=== PATIENT | female | born 1990 | race Caucasian/White ===

== ENCOUNTER 2016-10-16 00:21 | Emergency (ER) | payer OTHER ==
[~2016-10-16] VITALS: Ht 175.3 cm; Wt 74.4 kg
[~2016-10-16 00:21] MED LIST: BENTYL20 M1 PO; CIPRO 500MG TA500 MG PO; DOXYCYCLINE HY100 M4 PO; LEVSIN0.125 MG PO; MULTIVITAMIN1 TAB PO; OMEPRAZOLE40 MG PO; PRILOSEC40 MG PO; PYRIDIUM200 MG PO; TRAMADOL50 MG PO; VICODIN 5-3001 EACH PO; ZOFRAN4 M1 PO; ZOFRAN4 M2 PO
[2016-10-16 00:35] VITALS: BP 136/104
--- NOTE | 2016-10-16 00:40 | ED GENERAL ADULT ---
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 REPORTS CLEANED AT HOME W/ PEROXIDE AND HOT WATER. NO ACTIVE BLEEDING NOTED. EVALUATED BY JELENA NEGRON IN TRIAGE. PATIENT NOW STATES HAVING R ABD PAIN INTO R FLANK X 4-5 DAYS, HX KIDNEY STONES THOUGH PATIENT REPORTS "I JUST WANT TO SEE IF YOU CAN DO A PUSH TEST TO SEE IF ITS APPENDICITIS BECAUSE MY MOM HAD THAT." Triage Nurses Notes Reviewed? yes Onset: Abrupt Duration: minute(s): Timing: recent history Injury Environment: home No Modifying Factors: none : No Patient currently breastfeeds: No HPI: 26-year-old female comes into the emergency room for further evaluation of laceration to her left thumb. Patient reports that she cut it when she was cutting some bread. She cleaned it with peroxide and water. Last tetanus shot unknown. Patient also reports that she's been having some right-sided abdominal pain and right flank pain has been going on for past few days. Some fatigue. Denies any fever chills vomiting. (JELENA FUENTES) Past History Travel History Traveled to [place] past 21 day No Medical History Any Pertinent Medical History? 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 No (JELENA FUENTES) Review of Systems Review of Systems Constitutional: Reports: no symptoms. EENTM: Reports: no symptoms. Respiratory: Reports: no symptoms. Cardiovascular: Reports: no symptoms. GI: Reports: see HPI. Genitourinary: Reports: see HPI. Musculoskeletal: Reports: no symptoms. Skin: Reports: see HPI. Neurological/Psychological: Reports: no symptoms. Hematologic/Endocrine: Reports: no symptoms. Immunologic/Allergic: Reports: no symptoms. All Other Systems: Reviewed and Negative (JELENA FUENTES) Physical Exam Physical Exam General Appearance: well developed/nourished, no apparent distress, alert Head: atraumatic, normal appearance Eyes: Bilateral: normal appearance. Ears, Nose, Throat: normal ENT inspection, hearing grossly normal Neck: normal inspection, full range of motion Respiratory: normal breath sounds, no respiratory distress Cardiovascular: regular rate/rhythm Gastrointestinal: soft, non-tender, negative McBurney's point Back: normal inspection Extremities: normal inspection, normal range of motion Neurologic/Psych: awake, alert, oriented x 3, normal gait, normal mood/affect Skin: intact, normal color Core Measures ACS in differential dx? No CVA/TIA Diagnosis: No Severe Sepsis Present: No Septic Shock Present: No (JELENA FUENTES) Progress Differential Diagnoses I considered the following diagnoses in my evaluation of the patient: Pyelonephritis, renal colic, appendicitis, skin avulsion, ovarian cyst, ovarian torsion, Plan of Care: Orders Procedure Date/time Status URINE 10/16 0052 Complete URINALYSIS 10/16 0052 Complete Laboratory Tests 10/16/16 0100: Urine Color STRAW, Urine Clarity CLEAR, Urine pH 7.0, Ur Specific [place] 1.020, Urine Protein NEG, Urine Ketones NEG, Urine Nitrite NEG, Urine Bilirubin NEG, Urine Urobilinogen 0.2, Ur Leukocyte Esterase NEG, Ur Microscopic EXAM NOT REQUIRED, Urine Hemoglobin NEG, Urine Glucose NEG, Urine Test NEGATIVE 1:30 AM DISCUSSED RESULTS WITH PATIENT. BLADDER ISSUES X MORE THAN 1 YEAR. WILL FOLLOW UP WITH HER PCP OUTPATIENT. (NEREYDA BARRAGAN MD) Initial ED EKG: none Hand-Off Endorsed To: NEREYDA BARRAGAN MD Pending: labs (UA/URINE PREG) (JELENA FUENTES) Departure Departure Condition: Stable Clinical Impression Primary Impression: Avulsion of skin of finger Secondary Impressions: Abdominal pain Referrals: DONELL MACIEL,KLARISSA Blank (PCP/Family) Additional Instructions: Follow-up with your primary care doctor. Discussed the possibility of early appendicitis. Please return to the emergency room if you have any increased pain to the right side of her abdomen or any other concerns worsening symptoms. At this time you have decided to not do a further workup with blood work and CAT scan. Possibility of also kidney stone cannot be ruled out. Keep dressing in place for the next 7 days. Return if any other concerns. Please go over all results of today's visit with your primary care doctor. Contact your primary care doctor to let them know you were here in the emergency room. There may be nonspecific findings which may not be related to your visit today here in the emergency room but may require further evaluation and chronic monitoring by your primary care doctor. If you had a laceration today the chance of foreign body always remains. You should follow-up with your primary care doctor for recheck in 3-5 days for a wound check. If you had an x-ray done there is a chance that a fracture could have been missed on initial read and you should follow-up with your primary care doctor for repeat x-rays if symptoms persist. If your blood pressure was elevated here in the emergency room please have rechecked by her primary care doctor within the next 48 hours by your primary care doctor. If you were prescribed a narcotic here in the emergency room or any type of controlled substances you're not allowed to drive while taking this medication or operate any type of heavy machinery. Narcotics can make you feel lightheaded dizziness nausea and can cause constipation. You may need to chart picker a stool softener. Thank you for choosing [facility] emergency room. Please return to the emergency room immediately if you have any other concerns worsening of symptoms. Departure Forms: Customer Survey D/C INS-APPENDICITIS EXCLUSION General Discharge Information Prescriptions: Current Visit Scripts No Known Home Medications Comments 10/16/2016 12:57:38 AM Patient did not come in here primarily for her abdominal pain and flank pain. She does not appear to be in any type of distress. Negative McBurney's point on exam. She clinically looks well. She declined any workup with blood work or CAT scan at this time. Patient will follow up with her primary care doctor and return if any other concerns worsening symptoms. She is nontoxic appearing upon discharge. 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 I have also reviewed all the pertinent lab results and diagnostic results. I agree with the findings and the plan of care as documented in the PA's/CD MANUFACTURING SUPERVISOR's documentation. [X] I have reviewed the ED Record and agree with the PA's/CD MANUFACTURING SUPERVISOR's documentation. [] Additions or exceptions (if any) to the PAs/CD MANUFACTURING SUPERVISOR's note and plan are summarized below: [] (LAUREL MACIEL,NEREYDA) Procedures Laceration/Wound Repair Progress: Skin avulsion left thumb, irrigated peroxide, Dermabond, dry sterile dressing placed, patient tolerated procedure well, no need for stitches, cap refill intact (JELENA FUENTES) Critical Care Note Critical Care Note Critical Care Time: non-applicable (JELENA FUENTES)
== END 2016-10-16 01:30 ==
LOC: ERH 00:21
DX: S61.002A Unspecified open wound of left thumb without damage to nail, initial encounter (principal); R10.9 Unspecified abdominal pain; W26.0XXA Contact with knife, initial encounter; Y93.G1 Activity, food preparation and clean up; Y92.9 Unspecified place or not applicable
CPT/HCPCS: 81003; 81025; 90471; 90714; J3101

== ENCOUNTER 2016-10-19 17:24 | Emergency (ER) | payer OTHER ==
[~2016-10-19] VITALS: Ht 175.3 cm; Wt 73.5 kg
[2016-10-19] MEDS ORDERED: LEXAPRO5 M1 PO (17:50)
[2016-10-19] MEDS ORDERED: ALPRAZOLAM0.5 M4 PO (17:50)
--- NOTE | 2016-10-19 17:56 | ED GI/GU/ABDOMINAL COMPLAINT ---
History of Present Illness General Chief Complaint: Abdominal Pain/Flank Pain Stated Complaint: RT SIDED ABDOMINAL PAIN Source: patient Exam Limitations: no limitations Vital Signs & Intake/Output Vital Signs & Intake/Output Vital Signs Date Time Temp Pulse Resp B/P Pulse O2 O2 Flow FiO2 Ox Delivery Rate 10/19 194 98.1 80 16 116/68 100 Room Air 10/19 1846 Room Air 10/19 1726 97.4 102 18 128/93 99 Room Air ED Intake and Output 10/20 0000 10/19 1200 Intake Total 1004 Output Total 30 Balance 974 Intake, IV 1004 Intake, Oral 0 Number 0 Bowel Movements Output, Urine 30 Patient 162 lb Weight Allergies Coded Allergies: NO KNOWN ALLERGIES (03/18/14) Reconcile Medications Alprazolam 0.5 MG TABLET 0.5 TAB PO PRN ANXIETY (Reported) Escitalopram Oxalate (Lexapro) 5 MG TABLET 1 TAB PO DAILY ANXIETY (Reported) Triage Note: PT TO ED FOR INTERMITTENT R SIDED ABD PAIN, "LOW TEMP", R SIDED BACK PAIN X 3 DAYS. TEMP 97.4 IN TRIAGE. Triage Nurses Notes Reviewed? yes ? n Is pt currently ? No HPI: Ms. Starr is a 26 yo f w/ PMH of IBS, anxiety, depression, kidney stones, bipolar, and asthma presenting to ED for R sided abdominal and back pain. She states the pain began this past and was then dull ache in the right upper quadrant that radiated to her back. Patient assumed that this was a kidney stone she's had previous kidney stones in the past. However today the pain got significantly worse and since the pain has migrated to various areas in her abdomen. She endorses increased urinary frequency but no dysuria. She also endorses subjective fever and chills, but when she checks her temperature she is afebrile. Patient states she was seen here 2 days ago as she caught her index finger and needed a tetanus booster as well as some skin glue. At that point in time she was not . Positive nausea, no vomiting. Chronically soft borderline diarrhea stools which is unchanged. No blood in the stool. She endorses being sexually active without using any control or condoms. Patient is currently on her menses. Patient also adds that during the drive over, there were several bumps in the road and every time she went over a bump it was quite painful to her abdomen. (SALO GUTIERREZ MD) Past History Travel History Traveled to [place] past 21 day No Medical History Any Pertinent Medical History? 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 No (SALO GUTIERREZ MD) Review of Systems Review of Systems Constitutional: Reports: chills, fever. EENTM: Reports: no symptoms. Respiratory: Reports: no symptoms. Cardiovascular: Reports: no symptoms. GI: Reports: abdominal pain, diarrhea, nausea. Denies: bloody stool, changes in stool, vomiting. Genitourinary: Reports: frequency. Denies: discharge, hematuria, pain, urgency. Musculoskeletal: Reports: no symptoms. Skin: Reports: no symptoms. Neurological/Psychological: Reports: no symptoms. Hematologic/Endocrine: Reports: no symptoms. Immunologic/Allergic: Reports: no symptoms. All Other Systems: Reviewed and Negative (SALO GUTIERREZ MD) Physical Exam Physical Exam General Appearance: well developed/nourished, no apparent distress, alert, awake Head: atraumatic, normal appearance Eyes: Bilateral: normal appearance, PERRL, EOMI, normal inspection. Ears, Nose, Throat, Mouth: hearing grossly normal Neck: normal inspection, supple, full range of motion Respiratory: normal breath sounds, chest non-tender, no respiratory distress Cardiovascular: regular rate/rhythm Gastrointestinal: normal bowel sounds, soft, tenderness to palpation over the right upper quadrant, no rebound, voluntary guarding Rectal: deferred Back: normal inspection, normal range of motion, no CVA tenderness bilaterally Extremities: normal range of motion Neurologic/Psych: no motor/sensory deficits, awake, alert, oriented x 3, normal gait, normal mood/affect Skin: intact, normal color, warm/dry Core Measures ACS in differential dx? No Severe Sepsis Present: No Septic Shock Present: No (SALO GUTIERREZ MD) Progress Differential Diagnosis: appendicitis, biliary colic, cholecystitis, gastritis, hepatitis, inflamm bowel dis Plan of Care: Orders Procedure Date/time Status CULTURE,URINE 10/20 1751 Active URINE 10/20 1751 Complete URINALYSIS 10/20 1751 Complete LACTIC ACID 10/20 1751 Complete COMPREHENSIVE METABOLIC PANEL 10/20 1751 Complete CBC WITHOUT DIFFERENTIAL 10/20 1751 Complete Laboratory Tests 10/19/162051: Lactic Acid Cancelled 10/19/16 180: Anion Gap 11, Estimated GFR > 60, BUN/Creatinine Ratio 17.5, Glucose 108 H, Lactic Acid 0.8, Calcium 9.4, Total Bilirubin 0.5, AST 20, ALT 27, Alkaline Phosphatase 86, Total Protein 7.2, Albumin 4.3, Globulin 2.9, Albumin/Globulin Ratio 1.5, CBC w Diff NO MAN DIFF REQ, RBC 3.99 L, MCV 90.5, MCH 30.4, RDW 13.3 , MPV 7.7, Gran % 62.8, Lymphocytes % 28.5, Monocytes % 5.9, Eosinophils % 2.3, Basophils % 0.5, Absolute Granulocytes 5.7, Absolute Lymphocytes 2.6, Absolute Monocytes 0.5, Absolute Eosinophils 0.2, Absolute Basophils 0, PUBS MCHC 33.5 10/19/161752: Urine Color YEL, Urine Clarity CLEAR, Urine pH 7.0, Ur Specific [place] 1.015, Urine Protein NEG, Urine Ketones NEG, Urine Nitrite NEG, Urine Bilirubin NEG, Urine Urobilinogen 0.2, Ur Leukocyte Esterase NEG, Ur Microscopic SEDIMENT EXAMINED, Urine RBC RARE, Ur Epithelial Cells FEW, Urine Hemoglobin TRACE-INTACT , Urine Glucose NEG, Urine Test NEGATIVE Microbiology 10/19 1752 URINE ROUT: Urine Culture - RECD Patient is generally well-appearing. Endorses right flank pain. No urinary symptoms to suggest UTI or cystitis. Patient does not have CVA tenderness bilaterally therefore unlikely pyelonephritis. Some mild tenderness to palpation in the right upper quadrant. We'll obtain basic labs including LFTs. Labs essentially unremarkable. Patient had some mild improvement in the ED with 1 L bolus and Zofran. Patient continues to have some mild pain and is concerned that this could be her appendix after speaking to her family members. She also did endorse some abdominal pain while going over bumps in the road on a drive- in. We'll obtain CT to rule out appendicitis however it is more likely that this patient has a kidney stone. CT is unremarkable for any acute pathology. Patient feels reassured. Will follow up with her primary care doctor as needed. Patient is given return precautions. (SALO GUTIERREZ MD) Diagnostic Imaging: Viewed by Me: CT Scan. Discussed w/RAD: CT Scan. Radiology Impression: no acute abnormality Initial ED EKG: none (SALO GUTIERREZ MD) Departure Departure Time of Disposition: 2028 Disposition: HOME OR SELF CARE Condition: Stable Clinical Impression Primary Impression: Acute right flank pain Referrals: KLARISSA MARLEY MD (PCP/Family) Additional Instructions: Please follow up with her primary care doctor as needed. Your lab work today as well as CT scan are all normal. If you have worsening pain, or unable to keep down food or drink or any other concerning symptoms please return to the emergency department for further evaluation. Departure Forms: Customer Survey General Discharge Information (SALO GUTIERREZ MD) Resident Co-Sign Statement Statement: ED Attending supervision documentation- X I saw and evaluated the patient. I have also reviewed all the pertinent lab results and diagnostic results. I agree with the findings and the plan of care as documented in the Resident's documentation. [] I have reviewed the ED Record and agree with the Resident's documentation. [] Additions or exceptions (if any) to the Resident's note and plan are summarized below: [] (FLIP MACIEL,YAHAIRA)
[2016-10-19 18:20] LABS: ABSOLUTE BASOPHIL COUNT 0 /CUMM (0.0-0.2); ABSOLUTE EOSINOPHIL COUNT 0.2 /CUMM (0.0-0.7); ABSOLUTE GRANULOCYTE CT 5.7 /CUMM (1.4-6.5); ABSOLUTE LYMPH COUNT 2.6 /CUMM (1.2-3.4); ABSOLUTE MONOCYTE COUNT 0.5 /CUMM (0.10-0.60); BASOPHIL % 0.5 % (0.0-2.0); EOSINOPHIL % 2.3 % (0-5); GRANULOCYTE % 62.8 % (42.2-75.2); HEMATOCRIT 36.2 % (37-47); MEAN CORPUSCULAR HGB 30.4 PG (27.0-31.0); MEAN CORPUSCULAR HGB CONC 33.5 G/DL (33.0-37.0); MEAN CORPUSCULAR VOLUME 90.5 FL (81.0-99.0); MEAN PLATELET VOLUME 7.7 FL (7.4-10.4); PLATELET COUNT 289 /CUMM (130-400); RBC DISTRIBUTION WIDTH 13.3 % (11.5-14.5); RED BLOOD CELL CT 3.99 /CUMM (4.20-5.40); WHITE BLOOD CELL COUNT 9.1 /CUMM (4.8-10.8)
[2016-10-19 19:47] VITALS: BP 116/68
--- NOTE | 2016-10-19 19:59 | CT SCAN REPORT ---
EXAMINATION: CT ABDOMEN AND PELVIS WITHOUT AND WITH CONTRAST CLINICAL INFORMATION: Right kidney stone. COMPARISON: CT abdomen and pelvis 05/14/2016. TECHNIQUE: Multidetector volumetric imaging was performed through the abdomen prior to IV contrast. The abdomen and pelvis were then reexamined after the administration of 93 mL Optiray 320 intravenous contrast. Sagittal and coronal reformatted images were obtained on the technologist's workstation. DLP: 596 mGy-cm. FINDINGS: LUNG BASES: Mild dependent parenchymal changes. No pleural effusion. LIVER, GALLBLADDER, AND BILIARY TREE: The liver is normal in size, shape, and attenuation. No focal hepatic lesion or biliary ductal dilatation is present. The gallbladder is unremarkable with no evidence of radiopaque gallstones, gallbladder wall thickening, or obvious pericholecystic inflammatory changes. PANCREAS: Unremarkable. SPLEEN: Unremarkable. ADRENAL GLANDS: Unremarkable. KIDNEYS AND URETERS: The kidneys are normal in size, shape, and attenuation. No hydronephrosis, hydroureter, or calculi seen. No perinephric stranding. BLADDER: Unremarkable. GASTROINTESTINAL TRACT: Bowel gas pattern is nonobstructive. No evidence of acute bowel inflammation. The appendix is normal. ABDOMINAL WALL: No significant hernia is appreciated. LYMPH NODES: No pathologically enlarged lymph nodes are demonstrated. VASCULAR: Unremarkable. PELVIC VISCERA: Tampon noted. No suspicious uterine or adnexal lesion. No free pelvic fluid. OSSEOUS STRUCTURES: No acute osseous abnormalities. IMPRESSION: 1. No genitourinary calculi demonstrated. No hydronephrosis. 2. No acute bowel pathology.
== END 2016-10-19 20:47 ==
LOC: ERH 17:24
PROVIDERS: Emergency Medicine
DX: R10.9 Unspecified abdominal pain (principal); R11.0 Nausea
CPT/HCPCS: 74178; 81001; 81025; 87086; 96374; J2405